=== PATIENT | female | born 1985 | race Caucasian/White ===

== ENCOUNTER 2020-08-01 11:15 | Outpatient (CLI) | payer BC ==
[2020-08-01 12:40] LABS: BHCG - Serum Negative (NEGATIVE); Pregs Control Background? CLEAR/WHITE (CLR/WHITE); Pregs Control Bar Appear? YES (CONTROL BAR)
[2020-08-01 19:17] LABS: SARS-CoV-2 PCR by NAA Not Detected (NotDetected)
== END 2020-08-01 11:16 | disposition home or self-care (01) ==
LOC: LABBT 11:15
PROVIDERS: ATTEND Otolaryngology Plastic Surgery within the Head & Neck
DX: Z01.818 Encounter for other preprocedural examination (principal); J34.2 Deviated nasal septum; J32.9 Chronic sinusitis, unspecified; J30.9 Allergic rhinitis, unspecified; J34.3 Hypertrophy of nasal turbinates; G47.33 Obstructive sleep apnea (adult) (pediatric); R06.83 Snoring; K13.79 Other lesions of oral mucosa; J35.1 Hypertrophy of tonsils; J35.2 Hypertrophy of adenoids; Z20.822 Contact with and (suspected) exposure to COVID-19
CPT/HCPCS: 84703; 85014; 87635; U0003; U0005

== ENCOUNTER 2020-08-06 06:55 | Day surgery (SDC) | payer BC ==
[2020-08-05 14:28] VITALS: BMI 29.0
[2020-08-06] MEDS ORDERED: AFRIN NASAL MIST 15 ML BOT ONE ×2 (07:15→08:41)
[2020-08-06] MEDS ORDERED: Ferric Subsulfate (ASTRINGYN) 8 GM VIAL ONE (08:41)
[2020-08-06] MEDS ORDERED: Lidocaine 1% w/Epinephrine 1:100K 20 ML VIAL ONE (08:41)
[2020-08-06] MEDS ORDERED: Bacitracin Zinc Ointment 30 gm TUBE ONE (08:41)
[2020-08-06] MEDS ORDERED: Fentanyl 100 MCG/2 ML VIAL ONE ×3 (08:45→10:52)
[2020-08-06] MEDS ORDERED: Midazolam HCl 2 mg/2 ml Vial ONE (08:56)
[2020-08-06] MEDS ORDERED: Ondansetron PF 4 MG/2 ML Vial ONE ×2 (09:13→12:07)
[2020-08-06] MEDS ORDERED: PROPOFOL 200 MG/20 ML VIAL ONE (09:13)
[2020-08-06] MEDS ORDERED: Lidocaine 1% PF 5 ML VIAL ONE (09:13)
[2020-08-06] MEDS ORDERED: Dexamethasone 20 MG/5 ML VIAL ONE (09:13)
[2020-08-06] MEDS ORDERED: methylPREDNISolone Acetate 40 mg/ml Vial ONE (09:25)
[2020-08-06] MEDS ORDERED: Morphine 2 MG/ML VIAL ONE (11:45)
[2020-08-06] MEDS ORDERED: Hydrocodone-Acetamin 15 ML UDCUP ONE (11:57)
== END 2020-08-06 13:20 | disposition home or self-care (01) ==
LOC: SDC 06:55
PROVIDERS: ATTEND Otolaryngology Plastic Surgery within the Head & Neck
PROC: 09TV8ZZ Resection of Left Ethmoid Sinus, Via Natural or Artificial Opening Endoscopic (ICD-10-PCS; principal; 2020-08-06)
PROC: 099T8ZZ Drainage of Left Frontal Sinus, Via Natural or Artificial Opening Endoscopic (ICD-10-PCS; principal; 2020-08-06)
PROC: 09BR8ZZ Excision of Left Maxillary Sinus, Via Natural or Artificial Opening Endoscopic (ICD-10-PCS; principal; 2020-08-06)
PROC: 0CBNXZZ Excision of Uvula, External Approach (ICD-10-PCS; principal; 2020-08-06)
PROC: 09TU8ZZ Resection of Right Ethmoid Sinus, Via Natural or Artificial Opening Endoscopic (ICD-10-PCS; principal; 2020-08-06)
PROC: 0CTPXZZ Resection of Tonsils, External Approach (ICD-10-PCS; principal; 2020-08-06)
PROC: 0CTQXZZ Resection of Adenoids, External Approach (ICD-10-PCS; principal; 2020-08-06)
PROC: 099X8ZZ Drainage of Left Sphenoid Sinus, Via Natural or Artificial Opening Endoscopic (ICD-10-PCS; principal; 2020-08-06)
PROC: 09BQ8ZZ Excision of Right Maxillary Sinus, Via Natural or Artificial Opening Endoscopic (ICD-10-PCS; principal; 2020-08-06)
PROC: 099S8ZZ Drainage of Right Frontal Sinus, Via Natural or Artificial Opening Endoscopic (ICD-10-PCS; principal; 2020-08-06)
PROC: 099W8ZZ Drainage of Right Sphenoid Sinus, Via Natural or Artificial Opening Endoscopic (ICD-10-PCS; principal; 2020-08-06)
DX: J32.9 Chronic sinusitis, unspecified (principal); J34.2 Deviated nasal septum; J34.3 Hypertrophy of nasal turbinates; J34.89 Other specified disorders of nose and nasal sinuses; J35.03 Chronic tonsillitis and adenoiditis; G47.33 Obstructive sleep apnea (adult) (pediatric); J33.8 Other polyp of sinus; K13.79 Other lesions of oral mucosa; J30.9 Allergic rhinitis, unspecified; F17.200 Nicotine dependence, unspecified, uncomplicated; Z79.899 Other long term (current) drug therapy; Z88.0 Allergy status to penicillin; Z88.1 Allergy status to other antibiotic agents; Z88.8 Allergy status to other drugs, medicaments and biological substances; Z91.041 Radiographic dye allergy status
CPT/HCPCS: 88304; J1100; J2250; J2270; J2405; J2704; J2920; J3010

== ENCOUNTER 2020-08-19 13:28 | Emergency (ER) | payer BC ==
[2020-08-19] MEDS ORDERED: Oxymetazoline HCl 0.05% (30 ML BOT) ONE (14:03)
== END 2020-08-19 16:30 | disposition home or self-care (01) ==
LOC: ERS 13:28
DX: K91.841 Postprocedural hemorrhage of a digestive system organ or structure following other procedure (principal); G47.33 Obstructive sleep apnea (adult) (pediatric)
CPT/HCPCS: 99283